=== PATIENT | female | born 1955 | race Caucasian/White ===

== ENCOUNTER 2019-03-17 15:08 | Emergency (ER) | payer MEDICAID, SELFPAY ==
[2019-03-17 15:09] VITALS: BP 145/87; PULSE 98; RESP 16; TEMP 36.8; BMI 29.9
--- NOTE | 2019-03-17 16:20 | CT_ITS ---
STUDY: CT CERVICAL SPINE WITHOUT CONTRAST REASON FOR EXAM: Female, 63 years old. Fall. RADIATION DOSAGE (If Supplied By Facility): CTDIvol = ( 44.99 ) mGy, DLP = ( 796.11 ) mGycm TECHNIQUE: High resolution transaxial imaging was performed without contrast material. Sagittal and coronal images were reconstructed. Individualized dose optimization techniques were used for this CT. COMPARISON: None FINDINGS: Normal craniovertebral junction. There are degenerative changes of the anterior atlantoaxial articulation. Normal odontoid process. There is straightening of the normal cervical lordosis. The vertebral body heights are preserved. There is multilevel facet hypertrophy. C2-3: Normal endplates. Normal disc height and morphology. Normal central canal and intervertebral neuroforamina. C3-4: Normal endplates. Normal disc height and morphology. Normal central canal and intervertebral neuroforamina. C4-5: There is endplate spondylosis. Normal central canal and intervertebral neuroforamina. C5-6: There is a posterior disc osteophyte. Normal central canal and intervertebral neuroforamina. C6-7: There is endplate spondylosis. Normal central canal and intervertebral neuroforamina. C7-T1: Normal endplates. Normal disc height and morphology. Normal central canal and intervertebral neuroforamina. Normal visualized soft tissue structures. CT/Spine Cervical without Contras IMPRESSION: Multilevel degenerative changes, as described above. Electronically Signed: Chante Dowd MD at 17:17 EDT Tel , Service support ,
--- NOTE | 2019-03-17 16:20 | CT_ITS ---
STUDY: CT BRAIN WITHOUT CONTRAST REASON FOR EXAM: Female, 63 years old. Fall RADIATION DOSAGE (If Supplied By Facility): CTDIvol = ( 44.99 ) mGy, DLP = ( 796.11 ) mGycm TECHNIQUE: Transaxial CT imaging of the brain was performed without administration of intravenous contrast material. Individualized dose optimization techniques were used for this CT. COMPARISON: No relevant priors. FINDINGS: Normal soft tissue structures. Normal calvarium. Normal size ventricles and extra-axial spaces for the patient's age. Normal white matter tracts of the cerebral hemispheres. Normal basal ganglia and thalami. Normal brainstem. Normal cerebellum. There is no intracranial hemorrhage. There are no findings of an acute ischemic infarction. Normal visualized paranasal sinuses. CT/Brain/Head without Contrast IMPRESSION: No acute intracranial process. Electronically Signed: Chante Dowd MD at 17:13 EDT Tel , Service support ,
--- NOTE | 2019-03-17 16:27 | ED.DCSUM_ITS ---
- ER Visit Summary Date of Service: 03/17/19 Chief Complaint: Left shoulder pain History of Present Illness: The patient is a 63 F presenting with left shoulder pain. Patient states she had a mechanical fall yesterday. She states she tripped over her shoe. She states hit her head. She also hit her left shoulder. She is unsure if she lost consciousness with the fall. She states she woke up in bed after the fall. She states she is sure she did not have a seizure. She denies headache. She went to urgent care yesterday and they advised her to follow-up with orthopedics. She continues to have left shoulder pain that is worsened with movement. She has been taking meloxicam. She denies chest pain or shortness of breath. Denies other complaints. Physical Examination: Vitals are stable. Patient is afebrile. Alert no acute distress. HEENT exam is unremarkable. Neck is supple. Lungs are clear and equal bilaterally. Heart is regular rate and rhythm. Abdomen is soft nontender nondistended. Extremities diffuse left shoulder tenderness with painful range of motion. [place] rovascularly intact distally. Skin is warm and dry. No focal neurologic deficit. Remainder of exam is unremarkable. Emergency Department Course and Treatment: Left shoulder and humerus x-rays show no acute osseous injury. Indeterminate radiolucencies within the visualized proximal humerus. CT head and neck show no acute process. Patient was given [place]. She is advised to continue using her sling. Advised to follow-up with her primary care physician. She is advised importance of follow-up for radiolucencies found on x-ray. Patient understands and will follow up with her primary care physician tomorrow. She is advised to return to ED for worsening complaints. Disposition: Discharge home Impression: Left shoulder contusion This note was generated with [email or web address] dictation software. It may contain incorrect words, spelling, and punctuation that were not noted in review of the chart prior to signing ED Disposition - Plan for ED Patient: Instructions: ED Contusion Upper Ext Prescriptions: Hydrocodone Bitart/Apap 5-325 [[place] 5MG-325MG] 1 tablet PO Q6H PRN PRN 3 Days #10 tablet PRN Reason: Pain Referrals: Ava Crook MD [Primary Care Provider] -
--- NOTE | 2019-03-17 16:45 | RAD_ITS ---
STUDY: X-RAY - LEFT HUMERUS REASON FOR EXAM: Female, 63 years old. Fall. TECHNIQUE: 2 view(s) of the humerus. COMPARISON: None. FINDINGS: There are indeterminate radiolucencies within the mid and proximal diaphysis of the humerus. There is no demonstrated fracture. There is no demonstrated soft tissue abnormality. RAD/Humerus min 2 Views IMPRESSION: No acute fracture identified. Indeterminate radiolucencies within the proximal and mid humerus, consider MRI for further evaluation for cannot exclude underlying neoplastic process. Electronically Signed: Chante Dowd MD at 17:24 EDT Tel , Service support ,
--- NOTE | 2019-03-17 16:45 | RAD_ITS ---
STUDY: X-RAY - LEFT SHOULDER REASON FOR EXAM: Female, 63 years old. Fall. TECHNIQUE: 4 view(s) of the shoulder. COMPARISON: None. FINDINGS: There are degenerative changes of the glenohumeral articulation. There are degenerative changes of the acromioclavicular joint. Normal acromion. There are indeterminate radiolucencies within the proximal diaphysis of the humerus. The soft tissue structures are unremarkable. Normal visualized pulmonary apex. RAD/Shoulder min 2 Views IMPRESSION: Degenerative changes. No acute osseous injury. Indeterminate radiolucencies within the visualized proximal humerus. Electronically Signed: Chante Dowd MD at 17:26 EDT Tel , Service support ,
--- NOTE | 2019-03-17 19:12 | ED.DEP ---
ED Disposition - Plan for ED Patient: Instructions: ED Contusion Upper Ext Prescriptions: Hydrocodone Bitart/Apap 5-325 [[place] 5MG-325MG] 1 tablet PO Q6H PRN PRN 3 Days #10 tablet PRN Reason: Pain Referrals: Ava Crook MD [Primary Care Provider] -
[2019-03-17] MEDS: HYDROcodone Bitartrate/Apap 5/325 Tablet PO (19:32)
[2019-03-17 19:33] VITALS: BP 135/84; PULSE 88; RESP 16; O2SAT 98
== END 2019-03-17 19:33 | disposition home or self-care (01) ==
PROVIDERS: Emergency Provider Emergency Medicine; Family Provider Internal Medicine; PCP Internal Medicine
DX: S40.012A Contusion of left shoulder, initial encounter (principal); G40.909 Epilepsy, unspecified, not intractable, without status epilepticus; Z79.899 Other long term (current) drug therapy; W18.09XA Striking against other object with subsequent fall, initial encounter; Y93.89 Activity, other specified; Y92.009 Unspecified place in unspecified non-institutional (private) residence as the place of occurrence of the external cause; Y99.8 Other external cause status
CPT/HCPCS: 70450; 72125; 73030; 73060; 99282

== ENCOUNTER → 2021-09-20 20:15 | Outpatient (CLI) | payer MEDICAID, SELFPAY | PROVIDERS: PCP Internal Medicine; Referring Provider Psychiatry & Neurology Sleep Medicine; Visit Provider Psychiatry & Neurology Sleep Medicine | DX: G47.33 Obstructive sleep apnea (adult) (pediatric) (principal) | CPT/HCPCS: 95810 ==